=== PATIENT | male | born 1940 | race Caucasian/White ===

== ENCOUNTER → 2018-08-22 | Outpatient (CLI) | payer OTHER ==
[2018-08-22 14:13] LABS: ABSOLUTE NEUTROPHILS 4.3 thou/uL (1.4-8.2); BASOPHILS 0.9 % (0.0-2.0); EOSINOPHILS 4.4 % (0.0-3.0); HEMATOCRIT 43.5 % (42.0-52.0); HEMOGLOBIN 14.9 gm/dL (14.0-18.0); LYMPHOCYTES 17.4 % (24.0-44.0); MCH 32.8 pg (26.0-34.0); MCHC 34.3 g/dL (28.0-37.0); MCV 95.7 fL (80.0-100.0); PLATELET COUNT 211 thou/uL (150-400); POLYS 65.3 % (36.0-66.0); RBC 4.54 mil/uL (4.50-6.00); RDW 14.2 % (10.5-14.5); WBC 6.6 thou/uL (4.0-11.0)
[2018-08-22 14:27] LABS: ALBUMIN 3.8 g/dL (3.4-5.0); CALCIUM 9.3 mg/dL (8.5-10.1); CREATININE 1.3 mg/dL (0.7-1.3); DIRECT BILIRUBIN 0.2 mg/dL (<0.1-0.3); POTASSIUM 4.6 mmol/L (3.5-5.1); TOTAL BILIRUBIN 0.7 mg/dL (<0.1-1.0); TOTAL PROTEIN 7.6 g/dL (6.4-8.2)
== END ==
LOC: RAD 13:49
PROVIDERS: Otolaryngology Plastic Surgery within the Head & Neck
DX: M95.2 Other acquired deformity of head (principal); C44.319 Basal cell carcinoma of skin of other parts of face; I77.9 Disorder of arteries and arterioles, unspecified; I51.9 Heart disease, unspecified

== ENCOUNTER 2018-09-13 05:28 | Day surgery (SDC) | payer OTHER ==
[~2018-09-13] VITALS: Ht 180.3 cm; Wt 100.7 kg
[~2018-09-13 05:28] MED LIST: ALBUTEROL2.5 MG/31 INH; ASPIR 8181 MG PO; BREO ELLIPTA 11 EACH INH; CARVEDILOL12.5 MG PO; CRESTOR10 MG PO; GLUCOSAMINE CH1 EAC2 PO; HYTRIN 2MG CAPSU2 M1 PO; KLOR-CON 1010 MEQ PO; LASIX 20 MG TAB20 MG PO; MAG6464 MG PO; MOBIC7.5 MG PO; PRILOSEC OTC20 MG PO; SORINE 80 MG TA80 M1 PO; TRAMADOL 50 MG50 MG PO; VENTOLIN HFA INH8 GM INH
[2018-09-13 11:38] LABS: CALCIUM 9.5 mg/dL (8.5-10.1); CREATININE 1.3 mg/dL (0.7-1.3); POTASSIUM 4.5 mmol/L (3.5-5.1)
[2018-09-13] MEDS ORDERED: PROMS25 WY RECTAL (15:49)
[2018-09-13] MEDS ORDERED: CLEOCIN HCL150 MG PO (15:49)
--- NOTE | 2018-09-13 20:02 | NUR ---
PT RECEIVED FROM REC ROOM AT 1745 ALERT AND IN NO ACUTE DISTRESS. PT ASSISTED TO STAND TO VOID. ATE DINNER W/O DIFFICULTY BUT STATED IT STIRRED UP SOME PAIN. LT FACIAL DSNG DRY AND INTACT. SON WILL BE SPENDING THE NOC. IV FLUIDS INFUSING.
[2018-09-13 20:03] VITALS: BP 141/84
[2018-09-13 20:53] VITALS: BP 141/84
--- NOTE | 2018-09-14 00:06 | NUR ---
ASSUMED PT CARE 1900. PT ALERT AND ORIENTED X4. REASSESSMENT COMPLETED. IV DRESSING C/D/I. NO SIGNS OF INFILTRATION. SON AT BEDSIDE. APPLIED NEW GAUZE TO CHEEK DRESSING AND REINFORCED WITH TAPE. PT REPORT PASSED ON TO RELEIVING NURSE.
[2018-09-14 01:30] VITALS: BP 139/90
--- NOTE | 2018-09-14 01:30 | NUR ---
DRESSING IS NOTED TO BE SATURARTED WITH SANGUNEOUS DRAINAGE. NEW DRESSING APPLIED OVER SITE. DRAIN REMAINS INPLACE. CONTINUE TO MONITOR.
[2018-09-14 05:25] VITALS: BP 138/73
--- NOTE | 2018-09-14 07:45 | NUR ---
PT C/O GI UPSET AFTER TAKING CLINDAMYCIN. HE WAS GIVEN PHENERGAN AND PEPCID PO. REPORT HAND OF TO ONCOMING RN.
[2018-09-14 08:48] VITALS: BP 147/96
[2018-09-14 10:53] VITALS: BP 130/80
[2018-09-14 12:19] VITALS: BP 130/80
--- NOTE | 2018-09-14 12:55 | NUR ---
ASSUMED PT CARE AT 0700H. PT A&O X4. PT HAS NO S/S OF DISTRESS. PT STATES NO PAIN. PT L FACIAL CHEEK HAD A MODERATE DRAINAGE ON THE DRESSING. PT DRESSING CHANGED. PT HAS STERI STRIPS AND INCISION SUTURES IN PLACE. DRAIN INTACT TOO. PT L CHEEK PURPLE IN COLOR AND SWEELING. PT L CHEEK AREA DRY. NO BLEEDING SEEN OR DRAINING. PT DRESSING C/D/I. PT TOLERATED REG DIET AND MEDS. PT STATED BEING CONSTIPATED AND NEW ORDERS RECEIVED AND ACKNOWLEDGED. CONSULTED WITH PHYSICIAN AND PT CURRENTLY DC TO HOME WITH SON AT BEDSIDE. PT CURRENT LEFT UNIT ON WHEELCHAIR BY ASSISTANCE FROM NURSING STAFF. PT TRANSPORTED BY SON ON VAN.
--- NOTE | 2018-09-18 14:53 | O ---
[facility] [address] [facility] [place] [address] OPERATIVE REPORT Name: MAURILIOTHEODORE Room #: DEP [facility].#: [id number] Admission: 09/13/18 Attend Phys: Jovany Murcia MD Discharge: 09/14/18 Date of : 36 Report #: [id number] THIS REPORT FOR: //name// CC: Homer Cullen MD DATE OF SERVICE: 09/13/2018 SURGEON: Jovany Murcia MD PREOPERATIVE DIAGNOSES: 1. Mohs defect left cheek 4 cm x 3 cm infraorbital. 2. Soft tissue deficit, left cheek, status post excision basal cell carcinoma. 3. Basal cell carcinoma, left cheek, status post Mohs excision by Dr. Cullen. POSTOPERATIVE DIAGNOSES: 1. Mohs defect left cheek 4 cm x 3 cm infraorbital. 2. Soft tissue deficit, left cheek, status post excision basal cell carcinoma. 3. Basal cell carcinoma, left cheek, status post Mohs excision by Dr. Cullen. OPERATION PERFORMED: 1. Cervical facial flap rotation reconstruction, left cheek, 4 x 3 cm. 2. Subcutaneous fat soft tissue flap reconstruction, left cheek soft tissue defect. 3. Nerve integrity monitoring x 2 hours. INDICATIONS: The patient is an 78-year-old gentleman who was referred by his Mohs surgeon, Dr. Woody Cullen for otolaryngic evaluation in anticipation of reconstruction of a Mohs defect of the left cheek. The patient presented with a 1.1 x 0.7 x 0.5 cm left infraorbital skin lesion, biopsy proven basal cell carcinoma. The patient underwent excision by Dr. Cullen yesterday and presents now for planned staged reconstruction. The patient has been seen preoperatively by his commercial real estate assistant in anticipation of general anesthesia. DESCRIPTION OF PROCEDURE: The patient was brought to the operating room and placed supine on the operating table. After adequate general anesthesia was achieved via endotracheal intubation, he was turned 180 degrees with the face left forward. The dressing placed by Dr. Cullen was removed revealing a 4 x 3 cm irregular defect in the left cheek extending to mid cheek from the infraorbital skin. Deep to this, there was a soft tissue deficit down to the bone and periosteum, status post excision of basal cell carcinoma. The patient was then prepped with ophthalmic Betadine and draped in a sterile fashion with [address] [address] OPERATIVE REPORT Name: THEODORE THORPE Room #: DEP [facility] Estelita#: [id number] Admission: 09/13/18 Attend Phys: Jovany Murcia MD Discharge: 09/14/18 Date of : 36 Report #: [id number] anticipation a scleral protector was then placed after flooding with Lacrilube ointment. Various reconstruction scenarios were considered for reconstruction, ultimately it was felt to best to proceed with an inferior and lateral based cervical facial rotation flap reconstruction for this large defect. This was mapped out on the patient and then injected with 1% Xylocaine with 1:100,000 epinephrine. The edges of the Mohs excision were squared off with the hash gonzalez were placed by Dr. Cullen removed. These extra pieces of skin were sent as skin remnants to pathology. Wide undermining was then undertaken of essentially the entire cheek extending back to the ear and then inferiorly. This was kept in the deep subcutaneous fat layer. As a separate part of the procedure, the Xomed nerve integrity monitor was applied to the left face for continuous intraoperative monitoring of the facial nerve. Needle electrodes were placed in the orbicularis dieter and orbicularis oculi muscles with ground electrodes in the soft tissue overlying the sternum and contralateral shoulder. Electrode resistance and impedance was measured and found to be acceptable. Threshold and stimulus intensity parameters were set and the patient was monitored for the entirety of the case of about 2 hours in order to locate and protect the facial nerve. Once the cervicofacial flap was elevated essentially consisting of his entire cheek into the cervical neck, the incisions were then made in order to rotate this flap. Prior to doing this, a subcutaneous flap was also elevated in the subcutaneous fat and fascia. This was then extended superiorly and sewn to the periorbital bone to fill in the soft tissue defect from the excision, so that the patient would have a large defect post-reconstruction. Once this flap was inset, then the cervicofacial flap was then rotated into the defect and closure began initially with a stitch of 3-0 Vicryl as the main tensioning suture to offset any tension. The wound was then closed in layers beginning inferiorly and extending to the orbit with interrupted 4-0 Vicryl deep dermal sutures. Complete closure was achieved on the incisions post-rotation. Once the Vicryl were complete, 5-0 running nylon were placed in multiple limbs of the incision to close the epidermis. Mastisol and Steri-Strips were then applied for dressing. The scleral protector was then removed. The patient was then returned to anesthesia, awake without difficulty, returned to recovery in good condition. Sponge and needle counts were correct. There were no complications. Blood loss was about 25 mL. Hemostasis was assured, mostly with bipolar cauterization. The patient will be watched until awake and stable, presuming he does well. He may be discharged to home with plans to follow with me in 48 hours for drain removal and 1 week for suture removal. Written and verbal discharge instructions and emergency precautions have been given to his son. DISCHARGE MEDICATIONS: Will include clindamycin 300 mg 1 t.i.d. for 10 days, Phenergan suppository 25 mg 1 per rectum q. 4-6 hours p.r.n., hydrocodone/acetaminophen 7.5/325 one to two q. 4-6 hours p.r.n. He is [facility] [address] [place] [address] OPERATIVE REPORT Name: THEODORE THORPE Room #: DEP [facility].#: [id number] Admission: 09/13/18 Attend Phys: Jovany Murcia MD Discharge: 09/14/18 Date of : 36 Report #: [id number] instructed on light activity and a soft diet. He is instructed on care of the drain. <ELECTRONICALLY SIGNED> By: Jovany Murcia MD 09/18/18 1453 [id number] Jovany Murcia MD /nt
== END 2018-09-14 14:14 | disposition home or self-care (01) ==
LOC: TBA 05:28 → OR 05:28 → TBA 05:29 → OR 14:24 → 4E 18:02 → OR 09-14 14:14
PROVIDERS: Otolaryngology Plastic Surgery within the Head & Neck
DX: M95.2 Other acquired deformity of head (principal); Z85.828 Personal history of other malignant neoplasm of skin; I10 Essential (primary) hypertension; E78.00 Pure hypercholesterolemia, unspecified; I48.91 Unspecified atrial fibrillation; J45.909 Unspecified asthma, uncomplicated; G47.33 Obstructive sleep apnea (adult) (pediatric); K21.9 Gastro-esophageal reflux disease without esophagitis; Z86.73 Personal history of transient ischemic attack (TIA), and cerebral infarction without residual deficits; Z87.891 Personal history of nicotine dependence; Z98.0 Intestinal bypass and anastomosis status; Z96.652 Presence of left artificial knee joint; Z87.19 Personal history of other diseases of the digestive system; Z95.0 Presence of cardiac pacemaker; Z79.899 Other long term (current) drug therapy; Z98.890 Other specified postprocedural states; Z79.01 Long term (current) use of anticoagulants; Z88.0 Allergy status to penicillin; Z88.8 Allergy status to other drugs, medicaments and biological substances
CPT/HCPCS: 10783; 50010; 50101; 62110; 62900; 65130; 70005